=== PATIENT | female | born 1990 | race African-American/Black ===

== ENCOUNTER → 2016-12-27 | Outpatient (CLI) | payer SELFPAY | LOC: RAD 16:00 | PROVIDERS: ATTEND Nurse Practitioner Women's Health | DX: Z34.82 Encounter for supervision of other normal pregnancy, second trimester (principal) | CPT/HCPCS: 76805 ==

== ENCOUNTER 2017-03-21 16:08 | Outpatient (CLI) | payer SELFPAY ==
--- NOTE | 2017-03-21 18:34 | Non Stress Test Report ---
Non Stress Test Datetime Report Generated by CPN: 03/21/2017 18:33 INDICATION Indication for Study: Ordered by Provider Indication for Study (NST) Other: POST DATES MONITORING Monitor Explained: Monitor Explained; Test Explained; Patient Verbalized Understanding Monitor Explained Other: SHAQ Time on Monitor: 03/21/2017 16:31 Time off Monitor: 03/21/2017 17:57 NST Duration: 86 NST INTERVENTIONS NST Interventions: PO Hydration; Reposition Patient Physician Notified NST: DR HILL REVIEWED BABY A: [id number] BABY A Movement : Present Contraction Frequency : OCC FHR Baseline : 125 Accelerations : 15X15 Decelerations : None Variability : Moderate 6-25bpm NST Review: Meets Criteria for Reactive NST NST Review and Verified By : Raimundo Aviles RN NST Results: Reactive NST REPORT Report Trigger: Send Report
== END 2017-03-21 18:00 | disposition home or self-care (01) ==
LOC: LC 16:08
PROVIDERS: ATTEND Student in an Organized Health Care Education/Training Program
PROC: 4A1HXCZ Monitoring of Products of Conception, Cardiac Rate, External Approach (ICD-10-PCS; principal; 2017-03-21)
DX: O48.0 Post-term pregnancy (principal); Z3A.40 40 weeks gestation of pregnancy
CPT/HCPCS: 59025

== ENCOUNTER 2017-03-25 14:26 | Outpatient (CLI) | payer SELFPAY ==
--- NOTE | 2017-03-25 15:03 | Non Stress Test Report ---
Non Stress Test Datetime Report Generated by CPN: 03/25/2017 15:02 DEMOGRAPHIC EGA NST: 40.4 INDICATION Indication for Study: Ordered by Provider VITAL SIGNS Temperature - NST: 97.8 Pulse - NST: 89 RESP - NST: 18 NBPSYS NST: 92 NBPDIA NST: 54 MONITORING Monitor Explained: Monitor Explained; Test Explained; Patient Verbalized Understanding Time on Monitor: 03/25/2017 14:35 Time off Monitor: 03/25/2017 14:56 NST Duration: 21 NST INTERVENTIONS NST Interventions: PO Hydration; Reposition Patient Physician Notified NST: Dr Guillen BABY A Movement : Present Contraction Frequency : 0 FHR Baseline : 120 Accelerations : 15X15 Decelerations : None Variability : Moderate 6-25bpm NST Review: Meets Criteria for Reactive NST NST Review and Verified By : Tre Camejo RN NST Results: Reactive NST REPORT Report Trigger: Send Report
== END 2017-03-25 15:07 | disposition home or self-care (01) ==
LOC: LC 14:26
PROVIDERS: ATTEND Student in an Organized Health Care Education/Training Program
PROC: 4A1HXCZ Monitoring of Products of Conception, Cardiac Rate, External Approach (ICD-10-PCS; principal; 2017-03-25)
DX: O48.0 Post-term pregnancy (principal); Z3A.40 40 weeks gestation of pregnancy
CPT/HCPCS: 59025

== ENCOUNTER 2017-03-28 06:01 | Inpatient (IN) | payer SELFPAY ==
[2017-03-28] MEDS ORDERED: RINGERS SOLUTION,LACTATED 1,000 ML IV PRN (06:03)
[2017-03-28 06:23] LABS: HEMATOCRIT 28.1 % (36.0-47.0); HEMOGLOBIN 9.5 g/dL (12.0-15.5); HGB HCT DIFFERENCE 0.4; MEAN CORPUSCULAR HEMOGLOBIN 29.8 pg (27.0-33.4); MEAN CORPUSCULAR VOLUME 88 fl (80-97); RED CELL DISTRIBUTION WIDTH 14.8 % (11.5-14.0); WHITE BLOOD COUNT 7.1 10^3/uL (4.0-10.5)
[2017-03-28 06:43] LABS: BASOPHILS % (MANUAL) 0 % (0-2); EOSINOPHILS % (MANUAL) 1 % (0-6); LYMPHOCYTES % (MANUAL) 23 % (13-45); TOTAL CELLS COUNTED 100
[2017-03-28 06:47] LABS: ANISOCYTOSIS SLIGHT; OVALOCYTES SLIGHT; PLATELET CLUMPS PRESENT; POIKILOCYTOSIS SLIGHT; POLYCHROMASIA SLIGHT; TARGET CELLS SLIGHT
[2017-03-28 08:27] LABS: APPEARANCE,URINE CLEAR; BILIRUBIN,URINE NEGATIVE (NEGATIVE); GLUCOSE, URINE NEGATIVE (NEGATIVE); KETONES,URINE NEGATIVE (NEGATIVE); LEUKOCYTE ESTERASE,URINE NEGATIVE (NEGATIVE); NITRITE,URINE NEGATIVE (NEGATIVE); PROTEIN,URINE NEGATIVE (NEGATIVE); URINE SPECIFIC GRAVITY 1.003; UROBILINOGEN,URINE NEGATIVE mg/dL (<2.0)
[2017-03-28 08:41] LABS: URINE BARBITURATES SCREEN NEGATIVE; URINE METHADONE SCREEN NEGATIVE; URINE OPIATES LOW NEGATIVE; URINE PHENCYCLIDINE SCREEN NEGATIVE
[2017-03-28] MEDS ORDERED: MISOPROSTOL 0.1 MG TABLET ONE (10:15)
--- NOTE | 2017-03-28 11:00 | XCELERA REPORT ---
[address] [address] Transthoracic Echocardiogram Report Name: JOEY DAVE Age: 26 yrs Gender: Female : 1990 Patient Status: Inpatient Patient Location: LR\S\LR200\S\F Study Date: 03/28/2017 09:08 AM Height: 62 in Weight: 141 lb BSA: 1.6 m2 Procedure: A complete two-dimensional transthoracic echocardiogram was performed (2D, M-mode, spectral and color flow Doppler). The study was technically adequate with some images being suboptimal in quality. Reason For Study: Heart murmur 10/25 Ordering Physician: EVERETTE WHITEHEAD Performed By: Asia Wesley Interpretation Summary The left ventricular ejection fraction is normal. Doppler measurements suggest normal left ventricular diastolic function There is normal left ventricular wall thickness. The left ventricle is grossly normal size. No regional wall motion abnormalities noted. The right ventricular systolic function is normal. The right atrium is normal. The left atrial size is normal. There is a trace to mild amount of mitral regurgitation There is no mitral valve stenosis. There is no aortic valve stenosis There is a trace amount of aortic regurgitation There is a trace to mild amount of tricuspid regurgitation Right ventricular systolic pressure is at the upper limits of normal The aortic root is not well visualized but is probably normal size. The inferior vena cava appeared normal and decreased > 50% with respiration (RAP 5-10 mmHg) There is no pericardial effusion. MMode/2D Measurements \T\ Calculations RVDd: 3.1 cm LVIDd: 5.1 cm FS: 40.3 % Ao root diam: 3.0 cm IVSd: 0.84 cm LVIDs: 3.1 cm EDV(Teich): 124.5 ml LVPWd: 0.85 cm ESV(Teich): 36.5 ml Ao root area: 6.9 cm2 EF(Teich): 70.7 % Doppler Measurements \T\ Calculations MV E max malka: MV dec slope: Ao V2 max: LV V1 max P.7 cm/sec 144.0 cm/sec 4.8 mmHg MV A max malka: 780.0 cm/sec2 Ao max PG: LV V1 max: 49.5 cm/sec MV dec time: 8.3 mmHg 109.4 cm/sec MV E/A: 2.8 0.18 sec MR max malka: PA V2 max: PI end-d malka: TR max malka: 473.0 cm/sec 127.4 cm/sec 102.6 cm/sec 211.6 cm/sec MR max PG: PA max P.5 mmHg TR max P.5 mmHg 18.0 mmHg Left Ventricle The left ventricle is grossly normal size. There is normal left ventricular wall thickness. The left ventricular ejection fraction is normal. Doppler measurements suggest normal left ventricular diastolic function. No regional wall motion abnormalities noted. Right Ventricle The right ventricle is normal in size, thickness and function. There is normal right ventricular wall thickness. The right ventricular systolic function is normal. Atria The right atrium is normal. The left atrial size is normal. Interarterial septum not well visualized and not well dopplered. Cannot comment on ASD/PFO presence. Mitral Valve The mitral valve is grossly normal. There is no mitral valve stenosis. There is a trace to mild amount of mitral regurgitation. Aortic Valve The aortic valve is grossly normal. There is no aortic valve stenosis. There is a trace amount of aortic regurgitation. Tricuspid Valve The tricuspid valve is not well visualized, but is grossly normal. There is no tricuspid stenosis. There is a trace to mild amount of tricuspid regurgitation. Right ventricular systolic pressure is at the upper limits of normal. Pulmonic Valve The pulmonic valve is not well seen, but is grossly normal. Great Vessels The aortic root is not well visualized but is probably normal size. The inferior vena cava appeared normal and decreased > 50% with respiration (RAP 5-10 mmHg). Effusions There is no pericardial effusion. : EVERETTE WHITEHEAD > Jarvis Sims
--- NOTE | 2017-03-28 13:27 | L&D Progress Notes ---
PROGRESS NOTES Datetime Report Generated by CPN: 03/28/2017 13:27 PROGRESS NOTE Impression: Normal Progression of Labor Plan: Induction Informed Consent Obtained: Vaginal Delivery; Induction of Labor; Risks, Benefits and Alternatives Discussed Comment: plan epidural at pt request VAGINAL EXAM Dilatation: 3 Dilatation: 2 Effacement: 100 Effacement: 50 Station: 1 Station: -2 Contractions: rare MEMBRANES Membranes: Intact FETUS A FHR Category: Category I Presentation: Vertex SIGNATURE SIGNATURE: [id number] SIGNATURE: [id number] SIGNATURE: [id number] Signature: with User ID: [email or web address]
[2017-03-28] MEDS ORDERED: MISOPROSTOL 0.2 MG TABLET ONE (15:24)
[2017-03-28] MEDS ORDERED: LIDOCAINE 1% INJ-PF (10 MG/ML) 30 ML SDV ONE (15:24)
[2017-03-28] MEDS ORDERED: OXYTOCIN/NORMAL SALINE 20 UNIT/1,000 ML RTUINJ ONE (15:24)
[2017-03-28] MEDS ORDERED: DIBUCAINE 1% OINTMENT 28 GM TP PRN (15:57)
[2017-03-28] MEDS ORDERED: ACETAMINOPHEN WITH CODEINE #3 TABLET PO PRN ×2 (15:57)
[2017-03-28] MEDS ORDERED: MEASLES,MUMPS&RUBELLA VACC/PF 0.5 ML VIAL SUBCUT PRN (15:57)
[2017-03-28] MEDS ORDERED: ZOLPIDEM TARTRATE 5 MG TABLET PO PRN (15:57)
[2017-03-28] MEDS ORDERED: BENZOCAINE/MENTHOL AEROSOL SPRAY 56 ML TOP PRN (15:57)
[2017-03-28] MEDS ORDERED: OXYTOCIN/NORMAL SALINE 1,000 ML IV PRN (15:57)
[2017-03-28] MEDS ORDERED: DIPH/PERTUSS(ACELL)/TETANUS VAC/PF 0.5 ML SYR (>=10YO) IM PRN (15:57)
[2017-03-28] MEDS ORDERED: FENTANYL/BUPIVACAINE/NS/PF 200 MCG/100 ML RTUINJ EPI ONE (16:40)
[2017-03-28] MEDS ORDERED: BUPIVACAINE HCL 0.25 % INJ/PF (2.5 MG/1 ML) 30 ML VIAL ONE (16:40)
--- NOTE | 2017-03-28 17:52 | Admission Physical ---
Datetime Report Generated by CPN: 03/28/2017 17:52 CURRENT ADMISSION Chief Complaint: Scheduled Induction of Labor Indication for Induction: Post Dates Admit Plan: Admit to Unit; Initiate Labor Induction Protocol ALLERGIES Medication Allergies: No Medication Allergies: No Known Allergies (03/28/2017) Medication Allergies: No Known Allergies (03/25/2017) Latex: No Latex Allergies Food Allergies: none Environmental Allergies: none OBSTETRICAL HISTORY EDC: 03/21/2017 00:00 (Annotations: Data stored by [facility] on behalf of user) : 2 Para: 1 Term: 1 : 0 SAB: 0 IAB: 0 Ectopic: 0 Livin Cesareans: 0 VBACs: 0 Multiple Births: 0 Gestational Diabetes: No Rh Sensitization: No Incompetent Cervix: No JUVENCIO: No Infertility: No ART Treatment: No Uterine Anomaly: No IUGR: No Hx Previous C/S: No Macrosomia: No Hx Loss/Stillborn: No PIH: No Hx : No Placenta Previa/Abruption: No Depression/PP Depression: No PTL/PROM: No Post Hemorrhage: No Current Procedures: Ultrasound; NST Obstetrical History Comments: g1- vaginal delivery in [place] g2-current SEE RECORDS Alcohol: No Marijuana : No Cocaine: No Other Illicit Drugs: No Cigarettes: Never Smoker. [id number] MEDICAL HISTORY Diabetes: No Blood Transfusion: No Pulmonary Disease (Asthma, TB): No Breast Disease: No Hypertension: No Design Engineering Specialist Surgery: No Heart Disease: No Hosp/Surgery: Yes Autoimmune Disorder: No Anesthetic Complications: No Kidney Disease: No Abnormal Pap Smear: No Neuro/Epilepsy: No Psychiatric Disorders: No Other Medical Diseases: No Hepatitis/Liver Disease: No Significant Family History: No Varicosities/Phlebitis: No Trauma/Violence : No Thyroid Dysfunction: No Medical History Comments: childbirth x 1 INFECTIOUS HISTORY Gonorrhea: No Genital Herpes: No Chlamydia: No Tuberculosis: No Syphilis: No Hepatitis: No HIV/AIDS Exposure: No Rash or Viral Illness: No HPV: No PHYSICAL EXAM General: Normal HEENT: Normal Neurologic: Normal Thyroid: Normal Heart: Abnormal Lungs: Normal Breast: Deferred Back: Normal Abdomen: Normal Genitourinary Exam: Normal Extremities: Normal DTRs: Normal Pelvic Type: Adequate Physical Exam Comments: III/ probable CHAGO Vital Signs: Reviewed VAGINAL EXAM Dilatation: 3 Dilatation: 2 Effacement: 100 Effacement: 50 Station: 1 Station: -2 Contraction Comments: rare MEMBRANES Membranes: Intact FETUS A EGA: 41.0 Monitoring: External US FHR- Baseline: 125 Variability: Moderate 6-25bpm Accelerations: 15X15 Decelerations: None Presentation: Vertex Admit Comment: 26yo at 41+0ega presents for IOL due to Post KAREN. Pt if german speaking only. Limited care. Pt seen at [facility]. She denies ctx. She is doing well. GBS negative. Admit to L_D for IOL. Plan likely for pitocin/cooks catheter. GBS nevative. III/ prob CHAGO - will get ECHO now at admission PLANS FOR LABOR AND DELIVERY Labor and Delivery: None Pain Management: Epidural Feeding Preference: Both Benefit of Breast Feed Discussed: Yes Circumcision: Yes INFORMED CONSENT Informed Consent Obtained: Vaginal Delivery; Induction of Labor; Risks, Benefits and Alternatives Discussed Signature: with User ID: [email or web address]
[2017-03-28] MEDS: FERROUS SULFATE 325 MG TABLET PO SCH (18:47)
[2017-03-28] MEDS: DOCUSATE SODIUM 100 MG CAPSULE PO SCH (18:47)
[2017-03-28] MEDS: IBUPROFEN 800 MG TABLET PO SCH (21:25)
[2017-03-29] MEDS: IBUPROFEN 800 MG TABLET PO SCH ×3 (06:19→21:06)
[2017-03-29 07:40] LABS: HEMOGLOBIN 8.7 g/dL (12.0-15.5); HGB HCT DIFFERENCE 0.1; MEAN CORPUSCULAR HEMOGLOBIN 28.9 pg (27.0-33.4); MEAN CORPUSCULAR HGB CONC 33.4 g/dL (32.0-36.0); MEAN CORPUSCULAR VOLUME 87 fl (80-97); RED CELL DISTRIBUTION WIDTH 14.9 % (11.5-14.0); WHITE BLOOD COUNT 11.5 10^3/uL (4.0-10.5)
[2017-03-29] MEDS: PRENATAL VITAMIN W-O CA NO5/FE FUMARATE/FA CAPSULE PO SCH (09:20)
[2017-03-29] MEDS: DOCUSATE SODIUM 100 MG CAPSULE PO SCH ×2 (09:21→17:54)
[2017-03-29] MEDS: SENNOSIDES/DOCUSATE 8.6-50 MG 1 EACH TABLET PO SCH (09:21)
[2017-03-29] MEDS: FERROUS SULFATE 325 MG TABLET PO SCH ×2 (09:21→17:54)
--- NOTE | 2017-03-29 09:27 | Delivery Summary ---
Del Sum A-C Datetime Report Generated by CPN: 03/29/2017 09:27 DELIVERY PERSONNEL DELIVERY PERSONNEL: [id number] DELIVERY PERSONNEL: [id number] DELIVERY PERSONNEL: [id number] DELIVERY PERSONNEL: [id number] Delivery Doctor:: Allyson Mclean CNM Nurse Leasing Coordinator Certified:: Allyson Mclean CNM Labor and Delivery Nurse:: ROSLYN Duron Labor and Delivery Nurse:: ROSLYN Snyder/SUDHAKAR: Danette Reyna CNA II MATERNAL INFORMATION Delivery Anesthesia: Epidural Medications After Delivery: Pitocin Bolus-Please Comment; Pitocin Drip 20 Units/1000ml NSS; Other-Please Comment Meds After Delivery Comment: Cytotec 1000 mcg SC Estimated Blood Loss (ml): 400 Maternal Complications: None Provider Comments: pt complete +4, of viable male infant, head, shoulder, and body delivered without difficulty, infant with spontaneous cry and respirations to maternal abodomen, cord clamped X2 and cut free after 2 minute delay, spontaneous delivery of placenta, via luque mechanism, appears intact, 3 VC. Initially heavy bleeding, lower uterine segment boggy, clots manually expressed, good hemostasis with fundal massage and IV pitocin, 1000 mcg rectal cytotec given, vagina and perineum inspected, laceration repaired as above, mother and in stable condition, routine pp cre. LABOR SUMMARY EDC: 03/21/2017 00:00 (Annotations: Data stored by [facility] on behalf of user) No. Babies in Womb: 1 Attempted: No Labor Anesthesia: Epidural LABOR INFORMATION Reason for Induction: Post Dates Onset of Labor: 03/28/2017 13:23 Complete Dilatation: 03/28/2017 15:23 Cervical Ripening Agents: Cytotec @ Oxytocin: N/A Group B Beta Strep: negative Steroids Given: None Reason Steroids Not Administered: Not Applicable MEMBRANES Membranes Rupture Method: Spontaneous Rupture of Membranes: 03/28/2017 15:23 Length of Rupture (hr): 0.17 Amniotic Fluid Color: Clear Amniotic Fluid Amount: Moderate STAGES OF LABOR Stage 1 hr: 2 Stage 1 min: 0 Stage 2 hr: 0 Stage 2 min: 10 Stage 3 hr: 0 Stage 3 min: 4 Total Time in Labor hr: 2 Total Time in Labor min: 14 VAGINAL DELIVERY Episiotomy: None Laceration Extension: Second Degree Laceration Type: Perineal Laceration Repair: Yes Laceration Repair Note: Repaired with 2-0 chromic in usual fashion using epidural anesthesia Sponge Count Correct: Yes Sharps Count Correct: Yes CSECTION DELIVERY Primary Indication: N/A Secondary Indication: N/A CSection Incidence: N/A Labor: N/A Elective: N/A CSection Incision: N/A BABY A INFORMATION Infant Delivery Date/Time: 03/28/2017 15:33 Method of Delivery: Vaginal Born in Route : No : N/A Forceps: N/A Vacuum Extraction: N/A Shoulder Dystocia : No PRESENTATION/POSITION BABY A Presentation: Cephalic Cephalic Presentation: Vertex Vertex Position: Right Occipital Anterior Breech Presentation: N/A PLACENTA INFORMATION BABY A Placenta Delivery Time : 03/28/2017 15:37 Placenta Method of Delivery: Spontaneous Placenta Status: Delivered SCORES BABY A Heart Rate 1 min: >100 bpm Resp Effort 1 min: Good Cry Reflex Irritability 1 min: Cough or Sneeze or Pulls Away Muscle Tone 1 min: Some Flexion of Extremities Color 1 min: Body [place], Extremities Blue Resuscitation Effort 1 min: Tactile Stimulation SCORE 1 MIN: 8 Heart Rate 5 min: >100 bpm Resp Effort 5 min: Good Cry Reflex Irritability 5 min: Cough or Sneeze or Pulls Away Muscle Tone 5 min: Active Motion Color 5 min: Body [place], Extremities Blue Resuscitation Effort 5 min: N/A SCORE 5 MIN: 9 Resuscitation Effort 10 min: N/A INFANT INFORMATION BABY A Gestational Age at Delivery: 41.0 Gestational Status: Late Term- 41- 41.6 Weeks Outcome : Liveborn Condition : Stable Sex: Male IDENTIFICATION BABY A Verification Date/Time: 03/28/2017 17:28 ID Band Number: [id number] Mother's Name Verified: Yes RN Verifying Infant: C Yuly RN Additional Verifying Personnel: Michael Jacobs RNC CORD INFORMATION BABY A No. Cord Vessels: 3 Nuchal Cord : N/A Cord Blood Taken: Yes-For Storage (Mom's Blood type +) Infant Suction: Mouth; Nose ASSESSMENT BABY A Infant Complications: None Physical Findings at Delivery: Within Normal Limits Respirations: Appears Normal Skin to Skin: Yes Meters Superintendent/ALS Called : No Infant Care By: D Bellavance RNC Transferred To: Remains with Mother BABY B INFORMATION : N/A SIGNATURES Assignment: Hali Medrano MD Signature: with User ID: Ana : with User ID: [email or web address]
--- NOTE | 2017-03-29 12:10 | PDOC PROGRESS REPORT ---
Subjective-OB Subjective: Post Delivery Day:1 26 year old G2 now P2 s/p ppd1. Ambulating, voiding and without difficulty. Denies any needs at this time. Visit translated by vidIQ system Physical Exam (OB) Vital Signs: Temp Pulse Resp BP Pulse Ox 97.6 F 52 L 16 93/50 L 98 03/29/17 08:41 03/29/17 08:41 03/29/17 08:41 03/29/17 08:41 03/29/17 08:41 Intake & Output 03/28/17 03/29/17 03/30/17 06:59 06:59 06:59 Weight 64.1 kg - General General Appearance: Appears well In distress: None - Episiotomy/Laceration Site Condition: Well Approximated, Edematous - Lochia Lochia Amount: Moderate 25-50 ml Lochia Color: Rubra/Red - Abdomen Description: Soft Hernia Present: No Fundal Description: Firm, Midline Fundal Height: u/u - u/2 - Respiratory Respiratory Status: No respiratory distress - Neurological Cognition: Normal Orientation: AAOx4 - Psychological Associated symptoms: Normal affect, Normal mood Objective-Diagnostic Laboratory: 03/29/17 07:25 03/29/17 07:25 WBC 11.5 H RBC 3.00 L Hgb 8.7 L Hct 26.0 L MCV 87 MCH 28.9 MCHC 33.4 RDW 14.9 H Plt Count 196 Assessment and Plan(PN) - Assessment and Plan (1) Acute blood loss anemia Is this a current diagnosis for this admission?: YesPlan: continue FeSO4 and inc. dietary iron (2) Vaginal delivery Is this a current diagnosis for this admission?: YesPlan: continue stay (3) Heart murmur on physical examination Is this a current diagnosis for this admission?: YesPlan: continue stay - Time Spent with Patient Time with patient: 15-25 minutes Medications reviewed and adjusted accordingly: Yes - Disposition Anticipated Discharge: Home Within: within 24 hours
[2017-03-30] MEDS: IBUPROFEN 800 MG TABLET PO SCH ×2 (05:40→13:34)
[2017-03-30 07:49] VITALS: BP 90/52
[2017-03-30] MEDS: SENNOSIDES/DOCUSATE 8.6-50 MG 1 EACH TABLET PO SCH (10:31)
[2017-03-30] MEDS: DOCUSATE SODIUM 100 MG CAPSULE PO SCH ×2 (10:31→17:44)
[2017-03-30] MEDS: PRENATAL VITAMIN W-O CA NO5/FE FUMARATE/FA CAPSULE PO SCH (10:31)
[2017-03-30] MEDS: FERROUS SULFATE 325 MG TABLET PO SCH ×2 (10:31→17:44)
--- NOTE | 2017-03-30 11:09 | PDOC PROGRESS REPORT ---
Subjective-OB Subjective: Post Delivery Day: 26 year old. Denies any needs at this time. Ready to go home. Physical Exam (OB) Vital Signs: Temp Pulse Resp BP Pulse Ox 98.4 F 55 L 16 90/52 L 100 03/30/17 07:30 03/30/17 07:30 03/30/17 07:30 03/30/17 07:30 03/30/17 07:30 - Lochia Lochia Amount: Scant < 10 ml Lochia Color: Rubra/Red - Abdomen Description: Soft Hernia Present: No Bowel Sounds: Normoactive Flatus Presence: Present Stool: Yes Fundal Description: Firm, Midline Fundal Height: u/u - u/2 Objective-Diagnostic Laboratory: 03/29/17 07:25 Assessment and Plan(PN) - Time Spent with Patient Medications reviewed and adjusted accordingly: Yes - Disposition Anticipated Discharge: Home
--- NOTE | 2017-03-30 11:19 | PDOC DISCHARGE SUMMARY ---
Final Diagnosis Discharge Date: 03/30/17 - Final Diagnosis (1) Acute blood loss anemia Is this a current diagnosis for this admission?: Yes (2) Heart murmur on physical examination Is this a current diagnosis for this admission?: Yes (3) Insufficient antepartum care Is this a current diagnosis for this admission?: Yes (4) Is this a current diagnosis for this admission?: Yes (5) Vaginal delivery Is this a current diagnosis for this admission?: Yes Discharge Data - Discharge Medication Home Medications: [id number]/Iron Fumarate/FA/Dss [ 19 Tablet] 1 each PO DAILY 03/25/17 Ferrous Sulfate [Feosol 325 mg Tablet] 325 mg PO BID #60 tablet 03/30/17 Gestational Age: 41.0 wks Reason(s) for Admission: Induction of Labor Admission Note: Induction of labor for postdates. Procedures: Ultrasound Intrapartum Procedure(s): Spontaneous Vaginal Delivery Complication(s): Laceration-Perineal Laceration-Degree: 2nd - Data Baby 1 Male at 1 minute: 8 at 5 minutes: 9 Weight: 3.402 kg Home with Mother: Yes Complications: No - Diagnosis Test Laboratory: Temp Pulse Resp BP Pulse Ox 98.4 F 55 L 16 90/52 L 100 03/30/17 07:30 03/30/17 07:30 03/30/17 07:30 03/30/17 07:30 03/30/17 07:30 03/28/17 03/28/17 03/29/17 06:13 07:20 07:25 RBC 3.20 L 3.00 L Hgb 9.5 L 8.7 L Hct 28.1 L 26.0 L Urine Opiates Screen NEGATIVE - Discharge information/Instructions Discharge Activity: Activity As Tolerated, Balance Activity w/Rest, Pelvic Rest , Slowly Increase Activity, No tub bath Discharge Diet: Regular Disposition: HOME, SELF-CARE Follow [facility]: [facility] in: 4, Weeks
== END 2017-03-30 19:40 | disposition home or self-care (01) | DRG 775 ==
LOC: LR 06:01 → 2N 17:50
PROVIDERS: ADMIT Student in an Organized Health Care Education/Training Program; ATTEND Student in an Organized Health Care Education/Training Program
PROC: 10E0XZZ Delivery of Products of Conception, External Approach (ICD-10-PCS; principal; 2017-03-28)
PROC: 0KQM0ZZ Repair Perineum Muscle, Open Approach (ICD-10-PCS; 2017-03-28)
PROC: 3E0P7GC Introduction of Other Therapeutic Substance into Female Reproductive, Via Natural or Artificial Opening (ICD-10-PCS; 2017-03-28)
PROC: 4A1HXCZ Monitoring of Products of Conception, Cardiac Rate, External Approach (ICD-10-PCS; 2017-03-28)
DX: O48.0 Post-term pregnancy (principal); D62 Acute posthemorrhagic anemia; O70.1 Second degree perineal laceration during delivery; O99.02 Anemia complicating childbirth; Z3A.41 41 weeks gestation of pregnancy; Z37.0 Single live birth
CPT/HCPCS: 36415; 80307; 81005; 85025; 85027; 86592; 86850; 86900; 86901; 93306; J2590; J3490